=== PATIENT | female | born 1970 | race Caucasian/White ===

== ENCOUNTER → 2018-12-28 | Outpatient (CLI) | payer OTHER ==
--- NOTE | 2018-12-28 13:54 | REP ---
BILATERAL MAMMOGRAM WITH 3D TOMOSYNTHESIS: No family history of breast cancer. [facility] lifetime risk of breast cancer 9.2%. Bilateral mammography performed in the MLO and CC projections with 3D tomosynthesis. Comparison made with prior studies 04/03/2015 and 01/01/2014. There is mild scattered fibroglandular tissue bilaterally. There is a new oval irregular mass in the upper outer quadrant of the left breast measuring 1.9 cm in maximum diameter. There is also an adjacent more well circumscribed and smoothly marginated nodule slightly above and lateral and posterior, measuring 7 mm in maximum diameter. No other mass or clustered microcalcifications are seen bilaterally. There are coarse benign type calcifications present. There are nonenlarged axillary lymph nodes seen. IMPRESSION: BIRADS 0: BI-RADS/ACR category 0 mammogram, Incomplete: Need additional imaging evaluation and/or prior mammograms for comparison. Two new nodules in the upper outer quadrant of the left breast, with a larger irregular nodule 1.9 cm in diameter and an adjacent well circumscribed nodule 7 mm in diameter. Recommend spot compression views and ultrasound to further evaluate. This mammogram was interpreted with the aid of an FDA-approved computer-aided detection system. The patient states she has not had a clinical breast exam in over a year. The patient letter being requested is M0.
== END ==
LOC: M WHC 09:57
PROVIDERS: ATTEND Physician Assistant
DX: Z12.31 Encounter for screening mammogram for malignant neoplasm of breast (principal); N63.21 Unspecified lump in the left breast, upper outer quadrant

== ENCOUNTER → 2019-01-09 | Outpatient (CLI) | payer OTHER ==
--- NOTE | 2019-01-09 13:52 | REP ---
DIAGNOSTIC MAMMOGRAM LEFT BREAST WITH LEFT BREAST ULTRASOUND: Spot compression views of the left breast performed in multiple projections. These confirm the presence of an irregular oval nodule in the upper outer quadrant of the left breast. Approximate diameter is 1.9 cm. An adjacent nodule posterolateral to this appears fairly well circumscribed measuring 7 mm in diameter. Real-time sonographic evaluation of the upper outer quadrant of the left breast performed. Suspicious irregular solid mass is seen at 2-o'clock position 1.8 x 1.6 x 1.3 cm. There is an adjacent 6 mm cyst. These two entities correspond to the mammographic abnormality. IMPRESSION: BIRADS 4: BI-RADS/ACR category 4 mammogram. Suspicious Abnormality - biopsy should be considered. ACR 4 suspicious. Irregular solid nodule, upper outer quadrant left breast. This is seen both mammographically and sonographically. Recommend ultrasound-guided biopsy with postprocedure mammogram. In addition, there is an adjacent 6 mm benign appearing cyst just posterolateral to the solid nodule. Patient letter M4. Electronically Signed by Khai Sunshine MD 01/10/2019 03:05 P
== END ==
LOC: M RAD 10:26
PROVIDERS: ATTEND Physician Assistant
DX: N63.11 Unspecified lump in the right breast, upper outer quadrant (principal)

== ENCOUNTER → 2019-01-31 | Outpatient (CLI) | payer OTHER ==
[~2019-01-31] MED LIST: LIDOCAINE 1% MDV 20ML VIAL As Ordered ONE
--- NOTE | 2019-01-31 14:51 | REP ---
POST BIOPSY MAMMOGRAM LEFT BREAST: Post biopsy mammogram performed of the left breast following ultrasound-guided biopsy of a mass in the upper outer quadrant. A metallic clips is seen in the region of the mass that was seen on prior mammogram 12/28/2018 and 01/09/2019. Electronically Signed by Khai Sunshine MD 01/31/2019 04:19 P
--- NOTE | 2019-01-31 16:22 | REP ---
ULTRASOUND GUIDED LEFT BREAST BIOPSY The procedure was performed under the direct supervision of Dr. Sunshine The patient has a history of an irregular solid mass in the 2 o'clock position of the left breast measuring 1.8 x 1.6 x 1.3 cm. The risks and benefits of the procedure were explained to the patient and informed consent was obtained. The left breast nodule was localized using ultrasound guidance. The skin was prepped and draped in a sterile fashion. 1% Xylocaine was used as a local anesthetic. Using ultrasound guidance a 13-gauge suction assisted Mammotome needle was inserted and six core biopsy samples were obtained. However, there were technical issues with the suction assisted Mammotome needle and there were no specimens and the basket. Another 13-gauge suction assisted Mammotome needle was inserted and six more core biopsy samples were obtained. A marker clip was placed at the biopsy site. The patient tolerated the procedure well and there were no immediate complications. After the appropriate amount of monitored convalescence the patient was discharged from the department. Reviewed by EMELIA Saenz 01/31/2019 04:12 P Electronically Signed by Khai Sunshine MD 01/31/2019 04:13 P
== END ==
LOC: M RADPRO 12:27
PROVIDERS: ATTEND Physician Assistant
DX: C50.412 Malignant neoplasm of upper-outer quadrant of left female breast (principal); Z88.0 Allergy status to penicillin; Z88.1 Allergy status to other antibiotic agents; Z88.8 Allergy status to other drugs, medicaments and biological substances

== ENCOUNTER → 2019-02-10 | Outpatient (REF) | payer OTHER ==
[2019-02-10 16:04] LABS: BASO # 0.1 10^3/uL (0.0-0.2); BASO % 0.8 % (0.0-1.0); EOS # 0.1 10^3/uL (0.0-0.50); EOS % 1.1 % (0.0-3.0); HEMATOCRIT 44.6 % (36.0-47.0); HEMOGLOBIN 14.8 g/dl (12.0-15.5); LYMPH # 2.3 10^3/uL (1.5-4.5); LYMPH % 21.6 % (24.0-44.0); MEAN CORPUSCULAR HEMOGLOBIN 31.4 pg (27.0-33.0); MEAN CORPUSCULAR HGB CONC 33.2 g/dl (32.0-36.5); MEAN CORPUSCULAR VOLUME 94.5 fl (80.0-96.0); MONO # 0.5 10^3/uL (0.0-0.8); MONO % 4.9 % (0.0-5.0); NEUTROPHILS # 7.5 10^3/uL (1.8-7.7); NEUTROPHILS % 71.4 % (36.0-66.0); PLATELET COUNT, AUTOMATED 327 10^3/uL (150-450); RED BLOOD COUNT 4.72 10^6/uL (4.00-5.40); WHITE BLOOD COUNT 10.5 10^3/uL (4.0-10.0)
[2019-02-10 16:18] LABS: INR 0.92; PROTHROMBIN TIME 12.5 SECONDS (12.1-14.4)
[2019-02-10 16:19] LABS: PARTIAL THROMBOPLASTIN TIME 31.5 SECONDS (25.4-37.6)
[2019-02-10 16:21] LABS: ALT/SGPT 43 U/L (12-78); BLOOD UREA NITROGEN 9 MG/DL (7-18); CALCIUM LEVEL 8.7 MG/DL (8.5-10.1); CARBON DIOXIDE LEVEL 26 MEQ/L (21-32); CHLORIDE LEVEL 108 MEQ/L (98-107); CREATININE FOR GFR 0.87 MG/DL (0.55-1.30); FREE T4 1.02 NG/DL (0.76-1.46); GLOMERULAR FILTRATION RATE > 60.0 (>58); GLUCOSE, FASTING 93 MG/DL (70-100); POTASSIUM SERUM 4.3 MEQ/L (3.5-5.1); SODIUM LEVEL 141 MEQ/L (136-145); TOTAL PROTEIN 7.9 GM/DL (6.4-8.2)
== END ==
LOC: M SFHCPLAZ 13:22
PROVIDERS: ATTEND Family Medicine
DX: C50.919 Malignant neoplasm of unspecified site of unspecified female breast (principal)

== ENCOUNTER 2019-03-30 21:42 | Emergency (ER) | payer OTHER ==
[~2019-03-30] VITALS: Ht 157.5 cm; Wt 84.1 kg
[~2019-03-30 21:42] MED LIST changes: +CITA20TA7 PO; +CVS10CAP7 PO; +DEXA4TA PO; +HYDR-3713 PO; +LIDO2.5C15 TOP; -LIDOCAINE 1% MDV 20ML VIAL As Ordered ONE; +MULTTAB4 PO; +ONDA4TAB5 PO; +SM HTAB3 PO; +VICO5TAB17 PO; +ZYRTTAB8 PO
--- NOTE | 2019-03-30 23:37 | REPVR ---
EXAM: US Duplex Bilateral Lower Extremity Veins EXAM DATE/TIME: 03/30/2019 11:22 PM CLINICAL HISTORY: 48 years old, female; Pain; Leg, upper; Left; Additional info: Swelling TECHNIQUE: Imaging protocol: Real-time duplex ultrasound of the Bilateral Lower Extremities with 2-D jackson scale, color Doppler flow and spectral waveform analysis with image documentation. Complete exam focused on the bilateral lower extremity veins. COMPARISON: No relevant prior studies available. FINDINGS: Right deep veins: Unremarkable. The common femoral, femoral, proximal profunda femoral and popliteal veins are patent without thrombus. Normal Doppler waveforms. Normal compressibility and/or augmentation response. Right superficial veins: Saphenofemoral junction is patent without thrombus. Left deep veins: Unremarkable. The common femoral, femoral, proximal profunda femoral and popliteal veins are patent without thrombus. Normal Doppler waveforms. Normal compressibility and/or augmentation response. Left superficial veins: Saphenofemoral junction is patent without thrombus. Soft tissues: Unremarkable. IMPRESSION: No sonographic evidence of deep vein thrombosis. Electronically signed by: John Orellana On 03/30/2019 23:36:48 PM
[2019-03-31 00:37] VITALS: BP 108/68
[2019-04-12] MEDS ORDERED: CLAR10TA2 PO (08:51)
[2019-04-12] MEDS ORDERED: ZANT150T40 PO (08:51)
== END 2019-03-31 00:39 | disposition home or self-care (01) ==
LOC: M ED 21:42
DX: M70.862 Other soft tissue disorders related to use, overuse and pressure, left lower leg (principal); C50.012 Malignant neoplasm of nipple and areola, left female breast; G47.00 Insomnia, unspecified; Z88.0 Allergy status to penicillin; Z88.2 Allergy status to sulfonamides; Z79.899 Other long term (current) drug therapy

== ENCOUNTER → 2019-06-23 | Outpatient (CLI) | payer OTHER ==
[~2019-06-23] MED LIST changes: +ALL10TAB29 PO; +AMBI5TAB PO; +CLAR10TA2 PO; +TAMO20TA8 PO; +ZANT150T40 PO
--- NOTE | 2019-06-24 11:20 | RADONC ---
RADIATION ONCOLOGY CONSULTATION NOTE DATE: 06/23/2019 CHART NUMBER: [id number] DIAGNOSIS: Left breast cancer. STAGE: Stage I A, [id number], grade 3, HER2 negative, ER negative, AL positive. ECOG PERFORMANCE STATUS: 0. CONSULTATION NOTE: Ms. 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 HISTORY OF PRESENT ILLNESS: The patient was in the usual state of health until routine mammogram was done on 12/28/2018, in which she was found to have nodules in the upper outer quadrant of the left breast. One nodule measured 1.9 cm in diameter and an adjacent well-circumscribed nodule measured 7 mm in diameter. The patient underwent a left breast core biopsy and a poorly differentiated ductal carcinoma was found. The tumor was found to be estrogen receptor negative, progesterone receptor negative and HER2/esau negative. On 02/25/2019, the patient underwent lumpectomy and sentinel lymph node biopsy. Pathology revealed a 1.8 cm poorly differentiated infiltrating ductal carcinoma. Re-excision of the margins was undertaken and all margins were negative for malignancy. A total of two axillary lymph nodes were sampled and were negative for metastatic disease. Hormonal status was reevaluated and the patient was found to have estrogen receptor negative disease, HER2/esau negative disease and progesterone receptor positive disease with 10% positivity. The patient was seen by medical oncology in our institution and has subsequently undergone systemic therapy with Taxotere and cyclophosphamide. Her last systemic therapy was delivered on May 24, 2019. The patient did well with it and is now presenting for discussion of postoperative radiation therapy for conservative breast management. ALLERGIES: The patient is allergic to PENICILLIN and SULFA drugs. PAST MEDICAL HISTORY: The patient's past medical history is positive for anxiety and psychiatric issues but is otherwise noncontributory. She has been in generally good health. She has had a history of a tonsillectomy, tubal ligation and hysterectomy in the past. SOCIAL HISTORY: The patient does not smoke cigarettes. She drinks alcohol occasionally. FAMILY HISTORY: The patient's family history is positive for a father who of some type of cancer. REVIEW OF SYSTEMS: The patient's review of systems is positive for fatigue and some joint pain, as well as difficulty sleeping since chemotherapy. She is also positive for some anxiety and decreased energy. She denies nausea, vomiting, fevers, chills, night sweats, diplopia, headaches, depression, urinary or bowel difficulties, bone pain or neurological problems. PHYSICAL EXAMINATION: The patient is a well-developed, well-nourished female in no acute distress. HEENT exam is normocephalic, atraumatic. Extraocular movements are intact. There is no palpable cervical, supraclavicular, infraclavicular, axillary, or inguinal lymphadenopathy present. Lungs are clear to auscultation and percussion. Heart has a regular rate and rhythm. Abdomen is benign with no hepatosplenomegaly, masses, or tenderness. Breast examination reveals no masses or discharge bilaterally. Skeletal examination reveals no tenderness to pressure or percussion of the bony skeleton. Extremities reveal no clubbing, cyanosis, or edema. Neurologic exam is grossly intact, as is the remainder of the physical examination. ASSESSMENT Clearly, the patient is a candidate for external beam radiation therapy and I have so informed her. I have discussed with the patient in detail the potential benefits, as well as possible acute and chronic sequelae of external beam radiation therapy. We discussed logistics of treatment planning, simulation and subsequent fractionated daily radiation treatments. I have scheduled the patient for the next available simulation slot and radiation treatments will begin subsequently. Thank you for allowing us to participate in the care of this very pleasant woman. If I can be of any further assistance, please free to contact me anytime. As always, warm regards, Khai Trevizo MD cc: MD Chloé Brennan MD Ryan Tyler, MD
== END ==
LOC: M ONCR 08:55
PROVIDERS: ATTEND Radiology Radiation Oncology
DX: C50.912 Malignant neoplasm of unspecified site of left female breast (principal)

== ENCOUNTER → 2019-07-06 | Outpatient (RCR) | payer OTHER ==
--- NOTE | 2019-06-27 10:52 | LET ---
June 26, 2019 To Whom It May Concern: This is a very pleasant 48-year-old female who is currently on to my care for treatment of carcinoma of the breast. The patient is just completing her chemotherapy and is due to have supportive medications, as well as a 5 to 7-week course of radiation therapy. I have advised the patient that she needs to stay out of work until at least September 2019 in order for her to receive the second part of her treatment, as well as to avoid periods of immunosuppression from being in crowds. Thank you. Sincerely, Chloé Ramos MD
--- NOTE | 2019-06-27 12:00 | RADONC ---
RADIATION ONCOLOGY SIMULATION NOTE DATE: 06/27/2019 CHART #:[id number] SIMULATION NOTE Mrs. Michael with a diagnosis of left breast cancer was placed on the table in a supine position. An immobilization device was fabricated to ensure daily stability during her actual treatment. The patient tolerated the fabrication and placement of the immobilization device quite well with no significant untoward events. Thereafter, 3 mm images were obtained through our CT simulator for contouring of internal and external structures as well as in order to develop an appropriate treatment plan. I was present during the entire process of simulation. The entire simulation went well with no significant untoward side effects or events. MTDD
== END ==
LOC: M ONCR 06-27 10:15
PROVIDERS: ATTEND Radiology Radiation Oncology
DX: C50.412 Malignant neoplasm of upper-outer quadrant of left female breast (principal)

== ENCOUNTER 2019-08-02 14:32 | Outpatient (RCR) | payer OTHER ==
--- NOTE | 2019-07-10 15:46 | RADONC ---
RADIATION ONCOLOGY PROGRESS NOTE DATE: 07/10/2019 CHART NUMBER: [id number] PROGRESS NOTE: Mrs. Michael with a diagnosis of malignant neoplasm involving the upper outer quadrant of the left breast is currently receiving local regional radiotherapy and tolerating it fairly well. REVIEW OF SYSTEMS: She denies any nausea, vomiting, coughing, sputum production or hemoptysis. She still feels very fatigued which is left over from the chemotherapy but she has had no increasing fatigue with the addition of her adjuvant radiotherapy. Her energy level is such that she is able to maintain many day-to-day activities without any alteration of her lifestyle. She reports no skin irritation. She is only into her third treatment as of today. Examination findings: The skin within the irradiated volume shows neither erythema nor desquamation. There is no palpable peripheral lymphadenopathy. Lungs are clear to auscultation and percussion. Heart regular without murmurs. Abdomen without evidence of hepatomegaly, masses or deep abdominal tenderness. Extremities negative. The remainder of the physical examination is noncontributory. IMPRESSION: Tolerating therapy well. PLAN: Treatments to continue.
--- NOTE | 2019-07-17 16:19 | RADONC ---
RADIATION ONCOLOGY PROGRESS NOTE DATE: 07/17/2019 CHART NUMBER: [id number] PROGRESS NOTE: Ms. Michael is presently at a dose of 1440 cGy to her left breast and is tolerating treatments quite well at this point with no complaints related to her radiation therapy. She is having no breast or bone pain. REVIEW OF SYSTEMS: The patient's review of systems is noncontributory. Denies nausea, vomiting, fevers, chills, night sweats, diplopia, headaches, anxiety or depression, anorexia, weight loss, visual disturbances, chest pain, urinary or bowel difficulties, bone pain, or neurological problems. PHYSICAL EXAMINATION: The patient's skin is in good condition with no evidence of moist or dry desquamation. The remainder of her physical exam remains unchanged. Ms. Michael is tolerating treatments quite well and radiation will continue as scheduled.
--- NOTE | 2019-07-25 11:23 | RADONC ---
RADIATION ONCOLOGY PROGRESS NOTE DATE OF SERVICE: 07/24/2019 CHART NUMBER: [id number] Ms. Michael is presently at a dose of 2340 cGy to her left breast and is tolerating treatments quite well at this point with no significant difficulties related to her radiation therapy. She does report that she has generalized discomfort in all her bones and joints which appears to have coincided with the initiation of radiation treatments. She also has significant hot flashes, which have been going on a while as well. Other than that the patient's review of systems is noncontributory. Denies nausea, vomiting, fevers, chills, night sweats, diplopia, headaches, anxiety or depression, anorexia, weight loss, visual disturbances, chest pain, urinary or bowel difficulties, bone pain, or neurological problems. PHYSICAL EXAMINATION: The patient's skin is in good condition with no evidence of moist or dry desquamation. The remainder of her physical exam remains unchanged. Ms. Michael is tolerating treatments quite well and radiation will continue as scheduled.
--- NOTE | 2019-08-02 09:04 | RADONC ---
RADIATION ONCOLOGY PROGRESS NOTE DATE OF SERVICE: 07/31/2019 CHART NUMBER: [id number] Ms. Michael is presently at a dose of 3240 cGy to her left breast and is tolerating treatments quite well at this point with no significant difficulties related to her radiation therapy other than some skin tenderness. The patient's review of systems is positive for some skin tenderness but is otherwise noncontributory. Denies nausea, vomiting, fevers, chills, night sweats, diplopia, headaches, anxiety or depression, anorexia, weight loss, visual disturbances, chest pain, urinary or bowel difficulties, bone pain, or neurological problems. PHYSICAL EXAMINATION: The patient's skin is in good condition with some erythema present but no evidence of moist or dry desquamation. The remainder of the physical exam remains unchanged. Ms. Michael is tolerating treatments quite well and radiation will continue as scheduled.
--- NOTE | 2019-08-03 09:57 | RADONC ---
RADIATION ONCOLOGY SIMULATION NOTE DATE: 08/01/2019 CHART NUMBER: [id number] SIMULATION NOTE: Ms. Michael was taken to the linear accelerator today for clinical setup of her electron beam left breast boost. Setup was accomplished without difficulty or discomfort. Radiation treatment planning is underway and radiation treatments will begin subsequently. An immobilization device was created and will be used throughout the course of treatment. It was created without difficulty or discomfort. I was physically present throughout the course of clinical setup simulation.
== END 2019-08-05 ==
LOC: M ONCR 14:32
PROVIDERS: ATTEND Radiology Radiation Oncology
DX: C50.412 Malignant neoplasm of upper-outer quadrant of left female breast (principal)

== ENCOUNTER → 2019-08-15 | Outpatient (CLI) | payer OTHER ==
[2019-08-15 13:38] LABS: BASO % 0.9 % (0.0-1.0); EOS # 0.1 10^3/uL (0.0-0.5); EOS % 2.2 % (0.0-3.0); HEMATOCRIT 41.8 % (36.0-47.0); HEMOGLOBIN 13.5 g/dl (12.0-15.5); LYMPH # 1.1 10^3/uL (1.5-5.0); LYMPH % 24.6 % (24.0-44.0); MEAN CORPUSCULAR HEMOGLOBIN 29.9 pg (27.0-33.0); MEAN CORPUSCULAR HGB CONC 32.3 g/dl (32.0-36.5); MEAN CORPUSCULAR VOLUME 92.7 fl (80.0-96.0); MONO # 0.4 10^3/uL (0.0-0.8); MONO % 7.9 % (0.0-5.0); NEUTROPHILS # 2.9 10^3/uL (1.5-8.5); NEUTROPHILS % 64.2 % (36.0-66.0); PLATELET COUNT, AUTOMATED 240 10^3/uL (150-450); RED BLOOD COUNT 4.51 10^6/uL (4.00-5.40); WHITE BLOOD COUNT 4.6 10^3/uL (4.0-10.0)
[2019-08-15 13:54] LABS: ALBUMIN 3.8 GM/DL (3.2-5.2); ALT/SGPT 78 U/L (12-78); BILIRUBIN,TOTAL 0.5 MG/DL (0.2-1.0); BLOOD UREA NITROGEN 13 MG/DL (7-18); CARBON DIOXIDE LEVEL 26 MEQ/L (21-32); CHLORIDE LEVEL 107 MEQ/L (98-107); CHOLESTEROL LEVEL 180 MG/DL (<200); CHOLESTEROL RISK RATIO 2.142 (<5); CREATININE FOR GFR 0.78 MG/DL (0.55-1.30); FREE T4 0.89 NG/DL (0.76-1.46); GLOMERULAR FILTRATION RATE > 60.0 (>58); GLUCOSE, FASTING 109 MG/DL (70-100); HDL CHOLESTEROL 84 MG/DL (>40); LDL CHOLESTEROL 81 MG/DL (<100); NON-HDL-C 96 MG/DL; POTASSIUM SERUM 4.1 MEQ/L (3.5-5.1); PTH INTACT 60.1 PG/ML (18.5-88.0); SODIUM LEVEL 139 MEQ/L (136-145); TOTAL PROTEIN 6.9 GM/DL (6.4-8.2); TRIGLYCERIDES LEVEL 76 MG/DL (<150)
[2019-08-15 14:01] LABS: HEMOGLOBIN A1c 5.5 %
--- NOTE | 2019-08-15 15:06 | REPPI ---
Single AP standing view of both knees: History: Osteoarthritis. Comparison left knee radiographs are from August 15, 2019. Findings: Upright AP view of both knees demonstrate mild sclerosis in the medial compartment bilaterally. No significant joint space narrowing is seen however. Electronically Signed by Get Espinal MD 08/15/2019 05:19 P
--- NOTE | 2019-08-15 15:17 | REPPI ---
Left knee series: Five views. History: Osteoarthritis. Findings: There is mild sclerosis in the medial compartment. Mild patellar spurring is appreciated laterally and inferiorly. There is nonarticular spurring at the superior pole of the patella at the quadriceps tendon insertion as well. A normal fabella is seen. Bones, joints and soft tissues are otherwise unremarkable. Impression: Mild medial and patellofemoral compartment osteoarthritis. Nonarticular spurring at the superior pole of the patella quadriceps tendon insertion site is also seen. Electronically Signed by Get Espinal MD 08/15/2019 05:19 P
== END ==
LOC: M PLAIMG 10:32
PROVIDERS: ATTEND Family Medicine
DX: M17.0 Bilateral primary osteoarthritis of knee (principal); E66.3 Overweight

== ENCOUNTER 2019-08-23 14:01 | Outpatient (RCR) | payer OTHER ==
--- NOTE | 2019-08-08 16:02 | RADONC ---
RADIATION ONCOLOGY TREATMENT NOTE DATE OF SERVICE: 08/08/2019 CHART NUMBER: Mr. Michael is a 48-year-old woman, who carries a diagnosis of left breast cancer. She is status post chemotherapy. So far, she has received dose of 3960 cGy in 22 fractions. She is complaining of peripheral neuropathy. There is moderate to marked skin erythema in whole breast, more significantly inframammary area and left axilla. She is using corn starch in the inframammary area and axilla; also using Aquaphor. Further skin care discussed and treatment will continue. MTDD
--- NOTE | 2019-08-14 15:34 | RADONC ---
RADIATION ONCOLOGY PROGRESS NOTE DATE: 08/14/2019 CHART NUMBER: [id number] PROGRESS NOTE: Ms. Michael is presently at a dose of 4680 cGy to her left breast and is tolerating treatments quite well at this point with no significant difficulties related to her radiation therapy other than some skin tenderness. REVIEW OF SYSTEMS: The patient's review of systems is positive for some skin tenderness but is otherwise noncontributory. Denies nausea, vomiting, fevers, chills, night sweats, diplopia, headaches, anxiety or depression, anorexia, weight loss, visual disturbances, chest pain, urinary or bowel difficulties, bone pain, or neurological problems. PHYSICAL EXAMINATION: The patient's skin is in good condition with no evidence of moist or dry desquamation. The remainder of physical exam remains unchanged. Ms. Mihcael is tolerating treatments quite well and radiation will continue as scheduled.
--- NOTE | 2019-08-23 08:16 | RADONC ---
RADIATION ONCOLOGY PROGRESS NOTE DATE: 08/21/2019 CHART #: [id number] Ms. Michael is presently at a dose of 5680 cGy to her left breast primary site and is tolerating treatments quite well at this point with no complaints related to her radiation therapy. She is having no breast or bone pain. REVIEW OF SYSTEMS: The patient's review of systems is noncontributory. Denies nausea, vomiting, fevers, chills, night sweats, diplopia, headaches, anxiety or depression, anorexia, weight loss, visual disturbances, chest pain, urinary or bowel difficulties, bone pain, or neurological problems. PHYSICAL EXAMINATION: The patient's skin is in good condition with some erythema and tanning present. There is no moist or dry desquamation. The remainder of her physical exam remains unchanged. Ms. Michael is tolerating treatments quite well and radiation will continue as scheduled.
[~2019-08-23 14:01] MED LIST changes: +ONDA-83 PO; -ONDA4TAB5 PO
--- NOTE | 2019-08-25 16:32 | RADONC ---
RADIATION ONCOLOGY TREATMENT SUMMARY DATE: 08/23/2019 CHART NUMBER: [id number] DIAGNOSIS: Left breast cancer. STAGE: I A, pT1c, pN0, M0, grade 3, HER2/esau negative, ER negative, AZ positive. ECOG PERFORMANCE STATUS: 0 CONSULTATION NOTE: Ms. 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 We treated the left breast for a total dose of 4860 cGy delivered in 27 fractions of 180 cGy each over 40 elapsed days from 07/06/2019 through 08/15/2019. The patient's left breast was treated on a linear accelerator utilizing a combination of 6 and 10X photons via 3-D conformal technique with medial and lateral tangential hurtado. Following completion of 4860 cGy of the entire left breast, the primary site was boosted for an additional 1200 cGy delivered in 6 fractions of 200 cGy each over seven elapsed days from 08/16/2019 through 08/23/2019. The primary site boost was treated on the linear accelerator utilizing a 16 MeV electron beam prescribed to the 90% isodose line via non phos technique. This brought the primary site to a total dose of 6060 cGy delivered in 33 fractions over 47 elapsed days from 07/06/2019 through 08/23/2019. Ms. Michael tolerated her treatments quite well and was able to complete therapy as prescribed. I have scheduled the patient to see me again in 1 month for further followup. She will also continue to be followed by her other physicians as well. cc: Tanisha Richmond, MD Corin Payne MD
[2019-09-20] MEDS ORDERED: MELO15TA28 PO (08:42)
[2019-09-20] MEDS ORDERED: ASPI81CH33 PO (08:42)
[2019-09-20] MEDS ORDERED: GABA-843 PO (10:43)
== END 2019-09-05 ==
LOC: M ONCR 14:01
PROVIDERS: ATTEND Radiology Radiation Oncology
DX: C50.412 Malignant neoplasm of upper-outer quadrant of left female breast (principal)

== ENCOUNTER → 2019-09-27 | Outpatient (CLI) | payer OTHER ==
[~2019-09-27] MED LIST changes: +ASPI81CH33 PO; +GABA-843 PO; +MELO15TA28 PO
--- NOTE | 2019-09-28 08:15 | RADONC ---
RADIATION ONCOLOGY FOLLOWUP NOTE DATE: 09/27/2019 CHART NUMBER: [id number] DIAGNOSIS: Left breast cancer. STAGE: IA, pT1c, pN0, M0, grade 3, HER2 negative, ER negative, IN negative. ECOG PERFORMANCE STATUS: 0. FOLLOWUP NOTE: Ms. 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 The patient presents today reporting that generally she is doing quite well with no complaints at this time related to her radiation therapy or disease. She is having no breast or bone pain. The patient is concerned. She went to her medical oncologist, Dr. Kim, the other day who noted a lump in the surgical field of her treated breast and told her to immediately go to her surgeon, Dr. Corin Castanon MD. She is here today for routine followup and to obtain my opinion. She is scheduled see Dr. Corin Castanon later this afternoon [place]. The patient's review of systems is noncontributory. She denies nausea, vomiting, fevers, chills, night sweats, diplopia, headaches, anxiety or depression, anorexia, weight loss, visual disturbances, chest pain, urinary or bowel difficulties, bone pain, or neurological problems. PHYSICAL EXAMINATION: The patient is a well-developed, well-nourished, female in no acute distress. HEENT exam is normocephalic, atraumatic. Extraocular movements are intact. There is no palpable cervical, supraclavicular, infraclavicular, axillary, or inguinal lymphadenopathy present. Lungs are clear to auscultation and percussion. Heart has a regular rate and rhythm. Abdomen is benign with no hepatosplenomegaly, masses, or tenderness. Breast examination reveals the patient's right breast is free of masses or discharge. Her left breast shows some radiation tanning present, but is generally free of masses or discharge. Underneath the primary site surgical scar there is a hard little nodular density consistent with scar tissue. It is underlying the surgical scar, but also the deeply tanned region of the electron beam boost field. No other masses are noted. Skeletal examination reveals no tenderness to pressure or percussion of the bony skeleton. Extremities reveal no clubbing, cyanosis, or edema. Neurologic exam is grossly intact, as is the remainder of the physical examination. ASSESSMENT: I believe the patient is clinically ANGEL at this time although I look forward to Dr. Castanon's expert opinion with regards to this nodular area. I believe this is scar tissue. Not only it directly under the surgical scar which Dr. Castanon can address in greater detail but it is within our boost field of radiation. Logically it would seem hard to imagine that this area went from no disease to a hard mass growing right through the equivalent of 6060 cGy. Indeed the prescribed dose for the boost field was at the 90% isodose line and this area probably got somewhat hotter, I would estimate perhaps at 6200 cGy. Although that does not rule out the possibility that this could happen I find it very unlikely that this is anything to be concerned about. The patient is scheduled to see Dr. Corin Castanon every few months and in light of my impending prison I have discharged her from my followup except on an as needed basis. She does have my cell phone number as well as office number and I am available to her for anything whatsoever. She will also continue to be followed by her other physicians. cc: MD Neo Brennan MD Ryan Tyler, MD
== END ==
LOC: M ONCR 09:23
PROVIDERS: ATTEND Radiology Radiation Oncology
DX: Z08 Encounter for follow-up examination after completed treatment for malignant neoplasm (principal); C50.412 Malignant neoplasm of upper-outer quadrant of left female breast; Z92.3 Personal history of irradiation

== ENCOUNTER → 2019-10-04 | Outpatient (CLI) | payer OTHER ==
--- NOTE | 2019-10-10 14:22 | DEXA ---
AP SPINE L1 - L4 1.180 -0.1 0.2 LT FEMUR TOTAL 0.865 -1.1 -0.7 LT NECK 0.853 -1.3 -0.6 RT FEMUR TOTAL 1.022 0.1 0.5 RT NECK 0.973 -0.5 0.3 TOTAL BODY TOTAL OTHER COMMENTS: Normal bone densitometry of the spine. Normal bone densitometry of the right hip. There is low bone density of the left hip. FOLLOW-UP: Recommendation for the next bone density exam: 2 years. KEREN
== END ==
LOC: M WHC 09:17
PROVIDERS: ATTEND Internal Medicine Hematology & Oncology
DX: Z78.0 Asymptomatic menopausal state (principal); C50.412 Malignant neoplasm of upper-outer quadrant of left female breast

== ENCOUNTER → 2021-01-17 | Outpatient (REF) | payer OTHER ==
[~2021-01-17] MED LIST changes: -ALL10TAB29 PO; +CETI-24 PO; +GABA-282 PO; -GABA-843 PO; +LIDO1CRE42 TOP; -LIDO2.5C15 TOP; +MULT1TAB74 PO; -MULTTAB4 PO
[2021-01-17 14:08] LABS: HEMOGLOBIN A1c 5.4 %
[2021-01-17 14:35] LABS: ALBUMIN 3.8 GM/DL (3.2-5.2); ALT/SGPT 41 U/L (12-78); BILIRUBIN,TOTAL 0.6 MG/DL (0.2-1.0); BLOOD UREA NITROGEN 12 MG/DL (7-18); CALCIUM LEVEL 9.2 MG/DL (8.5-10.1); CARBON DIOXIDE LEVEL 28 MEQ/L (21-32); CHLORIDE LEVEL 108 MEQ/L (98-107); CREATININE FOR GFR 0.56 MG/DL (0.55-1.30); FREE T4 0.93 NG/DL (0.76-1.46); GLOMERULAR FILTRATION RATE > 60.0 (>51); GLUCOSE, FASTING 89 MG/DL (70-100); NT-PRO BNP 24 PG/ML (<125); POTASSIUM SERUM 4.7 MEQ/L (3.5-5.1); PTH INTACT 68.9 PG/ML (18.5-88.0); SODIUM LEVEL 141 MEQ/L (136-145); THYROGLOBULIN ANTIBODY < 15.0 U/ML (<60.0); THYROID PEROXIDASE ANTIBODY 29.2 U/ML (<60.0); TOTAL 25(OH) VITAMIN D 20.2 NG/ML (30.0-100.0); TOTAL PROTEIN 7.2 GM/DL (6.4-8.2)
== END ==
LOC: M SFHCPLAZ 08:54 → M SFHCADAM 08:55
PROVIDERS: ATTEND Family Medicine
DX: R73.01 Impaired fasting glucose (principal); E55.9 Vitamin D deficiency, unspecified; R60.0 Localized edema

== ENCOUNTER → 2021-01-27 | Outpatient (CLI) | payer OTHER | LOC: M WHC 12:46 | PROVIDERS: ATTEND Family Medicine | DX: E28.39 Other primary ovarian failure (principal) ==

== ENCOUNTER → 2021-04-28 | Outpatient (CLI) | payer OTHER ==
[~2021-04-28] MED LIST changes: +FLUTISP; +OMEP-218; +PARO5TAB; +VENL150C43; +VITA200016
== END ==
LOC: M LABSMTC 10:24
PROVIDERS: ATTEND Anesthesiology
DX: Z11.52 Encounter for screening for COVID-19 (principal)

== ENCOUNTER 2021-05-02 09:46 | Day surgery (SDC) | payer OTHER ==
[~2021-05-02] VITALS: Ht 157.5 cm; Wt 90.7 kg
[~2021-05-02 09:46] MED LIST changes: +LIDOCAINE 2% 100MG/5ML SDV (FOR ANES.) As Ordered ONE; +NS 1,000 ML IV ONE; +propofoL 200 MG/20 ML VIAL As Ordered ONE
--- NOTE | 2021-05-02 11:40 | ROOR ---
Patient Name: Rachael Michael Procedure Date: 05/02/2021 11:11 AM Date of : 1970 Age: 50 Room: [facility] Gender: Female Note Status: Finalized Procedure: Colonoscopy Indications: Screening for colorectal malignant neoplasm Providers: Navneet Wade MD Referring MD: Perez Costello MD Requesting Provider: Medicines: Monitored Anesthesia Care Complications: No immediate complications. Procedure: Pre-Anesthesia Assessment: - The heart rate, respiratory rate, oxygen saturations, blood pressure, adequacy of pulmonary ventilation, and response to care were monitored throughout the procedure. The Colonoscope was introduced through the anus and advanced to the terminal ileum, with identification of the appendiceal orifice and IC valve. The colonoscopy was performed without difficulty. The patient tolerated the procedure well. The quality of the bowel preparation was good. Findings: The perianal and digital rectal examinations were normal. A diminutive polyp was found in the sigmoid colon. The polyp was sessile. The polyp was removed with a cold snare. Resection and retrieval were complete. Small Internal Hemorrhoids. The exam was otherwise without abnormality on direct and retroflexion views. Impression: - One diminutive polyp in the sigmoid colon, removed with a cold snare. Resected and retrieved. - Small Internal Hemorrhoids. - The examination was otherwise normal on direct and retroflexion views. Recommendation: - Repeat colonoscopy in 5 years for surveillance. Procedure Code(s): --- Professional --- 01068, Colonoscopy, flexible; with removal of tumor(s), polyp(s), or other lesion(s) by snare technique Diagnosis Code(s): --- Professional --- K63.5, Polyp of colon Z12.11, Encounter for screening for malignant neoplasm of colon CPT copyright 2019 [employer]. All rights reserved. The codes documented in this report are preliminary and upon team truck driver review may be revised to meet current compliance requirements. Navneet Wade MD Navneet Wade MD 05/02/2021 11:40:02 AM Electronically signed by Navneet Wade MD Number of Addenda: 0 Note Initiated On: 05/02/2021 11:11 AM Estimated Blood Loss: Estimated blood loss: none.
[2021-05-02 12:00] VITALS: BP 131/74
== END 2021-05-02 12:11 | disposition home or self-care (01) ==
LOC: M OPP 09:46
PROVIDERS: ATTEND Internal Medicine Gastroenterology
DX: Z12.11 Encounter for screening for malignant neoplasm of colon (principal); K63.5 Polyp of colon; K64.8 Other hemorrhoids; K21.9 Gastro-esophageal reflux disease without esophagitis; Z79.899 Other long term (current) drug therapy; Z88.0 Allergy status to penicillin; Z88.8 Allergy status to other drugs, medicaments and biological substances

== ENCOUNTER → 2022-01-09 | Outpatient (CLI) | payer OTHER ==
[~2022-01-09] MED LIST changes: -LIDOCAINE 2% 100MG/5ML SDV (FOR ANES.) As Ordered ONE; -NS 1,000 ML IV ONE; +OMEP-173; -OMEP-218; -propofoL 200 MG/20 ML VIAL As Ordered ONE
== END ==
LOC: M WHC 08:58
PROVIDERS: ATTEND Family Medicine
DX: Z13.820 Encounter for screening for osteoporosis (principal); M85.80 Other specified disorders of bone density and structure, unspecified site

== ENCOUNTER → 2022-01-09 | Outpatient (CLI) | payer OTHER ==
[2022-01-09 13:48] LABS: HEMOGLOBIN A1c 5.5 %
[2022-01-09 13:51] LABS: ALBUMIN 3.9 GM/DL (3.2-5.2); ALT/SGPT 31 U/L (12-78); BILIRUBIN,TOTAL 0.7 MG/DL (0.2-1.0); BLOOD UREA NITROGEN 14 MG/DL (7-18); C REACTIVE PROTEIN QUANTITATIV 0.46 MG/DL (0.00-0.30); CALCIUM LEVEL 9.1 MG/DL (8.5-10.1); CARBON DIOXIDE LEVEL 28 MEQ/L (21-32); CHLORIDE LEVEL 107 MEQ/L (98-107); CHOLESTEROL LEVEL 181 MG/DL (<200); CHOLESTEROL RISK RATIO 2.513 (<5); CREATININE FOR GFR 0.74 MG/DL (0.55-1.30); GLOMERULAR FILTRATION RATE > 60.0 (>51); GLUCOSE, FASTING 88 MG/DL (70-100); HDL CHOLESTEROL 72 MG/DL (>40); LDL CHOLESTEROL 92 MG/DL (<100); NON-HDL-C 109 MG/DL; POTASSIUM SERUM 4.1 MEQ/L (3.5-5.1); SODIUM LEVEL 140 MEQ/L (136-145); TOTAL PROTEIN 7.1 GM/DL (6.4-8.2); TRIGLYCERIDES LEVEL 87 MG/DL (<150)
[2022-01-09 13:54] LABS: TOTAL 25(OH) VITAMIN D 34.7 NG/ML (30.0-100.0)
[2022-01-09 13:55] LABS: PTH INTACT 62.7 PG/ML (18.5-88.0)
== END ==
LOC: M PLALAB 08:52
PROVIDERS: ATTEND Family Medicine
DX: E55.9 Vitamin D deficiency, unspecified (principal); R73.01 Impaired fasting glucose

== ENCOUNTER 2022-01-22 10:39 | Emergency (ER) | payer OTHER ==
[~2022-01-22] VITALS: Ht 157.5 cm; Wt 90.9 kg
[2022-01-22 10:39] VITALS: BP 163/92
== END 2022-01-22 13:44 | disposition left against medical advice (07) ==
LOC: M ED 10:39
DX: Z53.29 Procedure and treatment not carried out because of patient's decision for other reasons (principal)

== ENCOUNTER → 2022-06-25 | Outpatient (REF) | payer OTHER | LOC: M SFHCPLAZ 14:31 | PROVIDERS: ATTEND Family Medicine | DX: R73.01 Impaired fasting glucose (principal); M85.80 Other specified disorders of bone density and structure, unspecified site; K21.9 Gastro-esophageal reflux disease without esophagitis; G62.9 Polyneuropathy, unspecified; G31.84 Mild cognitive impairment of uncertain or unknown etiology; Z53.8 Procedure and treatment not carried out for other reasons ==

== ENCOUNTER → 2022-06-25 | Outpatient (CLI) | payer OTHER ==
[2022-06-25 17:17] LABS: HEMATOCRIT 40.6 % (36.0-47.0)
[2022-06-25 17:57] LABS: CREATININE, URINE 90.1 MG/DL; MALB URINE SIEMENS 7.8 MG/L; MAU/CREAT RATIO 8.6 MCG/MG (0.0-30.0)
[2022-06-25 19:19] LABS: HEMOGLOBIN A1c 5.4 %
[2022-06-29 16:10] LABS: APOLIPOPROTEIN A-1 170 mg/dL (116-209); APOLIPOPROTEIN B 79 mg/dL (<90); APOLIPOPROTEIN B/A-1 RATIO 0.5 ratio (0.0-0.6); H PYLORI SERUM QUANT IgG ABY 0.13 (0.00-0.79); INSULIN LEVEL 25.9 uIU/mL (2.6-24.9); TISSUE TRANSGLUTAMINASE IgA <2 U/mL (0-3)
== END ==
LOC: M ADAMS 14:39
PROVIDERS: ATTEND Family Medicine
DX: R73.01 Impaired fasting glucose (principal); M85.80 Other specified disorders of bone density and structure, unspecified site; K21.9 Gastro-esophageal reflux disease without esophagitis; G62.9 Polyneuropathy, unspecified; G31.84 Mild cognitive impairment of uncertain or unknown etiology

== ENCOUNTER → 2022-11-30 | Outpatient (CLI) | payer OTHER ==
[2022-11-30 15:10] LABS: FREE T4 1.01 NG/DL (0.89-1.76); THYROID STIMULATING HORMONE 3.287 uIU/ML (0.55-4.78)
[2022-11-30 15:11] LABS: ALBUMIN 3.9 G/DL (3.2-5.2); ALKALINE PHOSPHATASE 118 U/L (46-116); ALT/SGPT 24 U/L (7.0-40); AST/SGOT 19 U/L (<34); BILIRUBIN,TOTAL 0.6 MG/DL (0.3-1.2); BLOOD UREA NITROGEN 13 MG/DL (9-23); CALCIUM LEVEL 9.3 MG/DL (8.5-10.1); CARBON DIOXIDE LEVEL 28 MMOL/L (20-31); CHLORIDE LEVEL 107 MMOL/L (98-107); CREATININE FOR GFR 0.65 MG/DL (0.55-1.30); FERRITIN 30.8 NG/ML (7.3-270.7); GLOMERULAR FILTRATION RATE > 60.0 (>51); GLUCOSE, FASTING 95 MG/DL (60-100); POTASSIUM SERUM 4.6 MMOL/L (3.5-5.1); SODIUM LEVEL 139 MMOL/L (136-145); TOTAL PROTEIN 6.9 G/DL (5.7-8.2)
[2022-11-30 15:12] LABS: PTH INTACT 76.4 PG/ML (18.5-88.0)
[2022-11-30 15:13] LABS: TOTAL 25(OH) VITAMIN D 30.1 NG/ML (20.0-100.0); VITAMIN B12 LEVEL 232 PG/ML (211-911)
[2022-11-30 15:24] LABS: BASO # 0.1 10^3/uL (0.0-0.2); BASO % 0.8 % (0.0-1.0); EOS # 0.1 10^3/uL (0.0-0.5); EOS % 2.3 % (0.0-3.0); HEMOGLOBIN 13.7 g/dl (12.0-15.5); LYMPH # 2.3 10^3/uL (1.5-5.0); MEAN CORPUSCULAR HEMOGLOBIN 29.1 pg (27.0-33.0); MEAN CORPUSCULAR HGB CONC 31.1 g/dl (32.0-36.5); MEAN CORPUSCULAR VOLUME 93.4 fl (80.0-96.0); MONO # 0.4 10^3/uL (0.0-0.8); MONO % 5.8 % (2.0-8.0); NEUTROPHILS # 3.2 10^3/uL (1.5-8.5); NEUTROPHILS % 52.6 % (36.0-66.0); PLATELET COUNT, AUTOMATED 300 10^3/uL (150-450); RED BLOOD COUNT 4.71 10^6/uL (4.00-5.40); WHITE BLOOD COUNT 6.2 10^3/uL (4.0-10.0)
[2022-11-30 15:35] LABS: HEMOGLOBIN A1c 5.4 % (4.0-6.0)
== END ==
LOC: M PLALAB 09:55
PROVIDERS: ATTEND Family Medicine
DX: E53.8 Deficiency of other specified B group vitamins (principal); E55.9 Vitamin D deficiency, unspecified; R73.01 Impaired fasting glucose

== ENCOUNTER → 2022-12-09 | Outpatient (CLI) | payer OTHER ==
[~2022-12-09] MED LIST changes: +FLUT50SP17; -FLUTISP
== END ==
LOC: M SLEEP HO 11:41
PROVIDERS: ATTEND Family Medicine
DX: G47.33 Obstructive sleep apnea (adult) (pediatric) (principal)

== ENCOUNTER → 2023-06-23 | Outpatient (REF) | payer OTHER ==
[~2023-06-23] MED LIST changes: -LIDO1CRE42 TOP; +LIDO30CR18 TOP
[2023-06-23 17:28] LABS: BASO # 0.1 10^3/uL (0.0-0.2); EOS # 0.2 10^3/uL (0.0-0.5); EOS % 2.2 % (0.0-3.0); HEMATOCRIT 41.8 % (36.0-47.0); HEMOGLOBIN 13.5 g/dl (12.0-15.5); LYMPH # 2.6 10^3/uL (1.5-5.0); LYMPH % 35.3 % (24.0-44.0); MEAN CORPUSCULAR HEMOGLOBIN 29.3 pg (27.0-33.0); MEAN CORPUSCULAR HGB CONC 32.3 g/dl (32.0-36.5); MEAN CORPUSCULAR VOLUME 90.7 fl (80.0-96.0); MONO # 0.5 10^3/uL (0.0-0.8); MONO % 6.5 % (2.0-8.0); NEUTROPHILS % 54.7 % (36.0-66.0); PLATELET COUNT, AUTOMATED 291 10^3/uL (150-450); RED BLOOD COUNT 4.61 10^6/uL (4.00-5.40); WHITE BLOOD COUNT 7.3 10^3/uL (4.0-10.0)
[2023-06-23 17:57] LABS: FERRITIN 38.6 NG/ML (7.3-270.7); THYROID STIMULATING HORMONE 1.934 uIU/ML (0.55-4.78)
[2023-06-23 17:58] LABS: FREE T4 0.91 NG/DL (0.89-1.76)
[2023-06-23 18:01] LABS: ALBUMIN 3.9 G/DL (3.2-5.2); ALKALINE PHOSPHATASE 119 U/L (46-116); ALT/SGPT 25 U/L (7.0-40); AST/SGOT 18 U/L (<34); BILIRUBIN,TOTAL 0.5 MG/DL (0.3-1.2); BLOOD UREA NITROGEN 9 MG/DL (9-23); CARBON DIOXIDE LEVEL 28 MMOL/L (20-31); CHLORIDE LEVEL 107 MMOL/L (98-107); CREATININE FOR GFR 0.71 MG/DL (0.55-1.30); GLOMERULAR FILTRATION RATE > 60.0 (>51); GLUCOSE, FASTING 71 MG/DL (60-100); POTASSIUM SERUM 4.2 MMOL/L (3.5-5.1); SODIUM LEVEL 143 MMOL/L (136-145); TOTAL PROTEIN 7.1 G/DL (5.7-8.2)
[2023-06-23 18:03] LABS: VITAMIN B12 LEVEL 354 PG/ML (211-911)
[2023-06-23 18:05] LABS: THYROGLOBULIN ANTIBODY < 15.0 U/ML (<60.0); THYROID PEROXIDASE ANTIBODY < 28.0 U/ML (<60.0)
== END ==
LOC: M SFHCADAM 15:46
PROVIDERS: ATTEND Family Medicine
DX: E53.8 Deficiency of other specified B group vitamins (principal); R73.01 Impaired fasting glucose

== ENCOUNTER → 2024-07-26 | Outpatient (CLI) | payer OTHER ==
[~2024-07-26] MED LIST changes: -FLUT50SP17; +FLUTISP; +GABA-1172 PO; -GABA-282 PO
[2024-07-26 11:28] LABS: BASO # 0.1 10^3/uL (0.0-0.2); BASO % 0.9 % (0.0-1.0); EOS # 0.1 10^3/uL (0.0-0.5); HEMATOCRIT 42.2 % (36.0-47.0); HEMOGLOBIN 13.8 g/dl (12.0-15.5); LYMPH # 2.1 10^3/uL (1.5-5.0); MEAN CORPUSCULAR HEMOGLOBIN 29.9 pg (27.0-33.0); MEAN CORPUSCULAR HGB CONC 32.7 g/dl (32.0-36.5); MEAN CORPUSCULAR VOLUME 91.5 fl (80.0-96.0); MONO # 0.5 10^3/uL (0.0-0.8); MONO % 6.7 % (2.0-8.0); PLATELET COUNT, AUTOMATED 315 10^3/uL (150-450); RED BLOOD COUNT 4.61 10^6/uL (4.00-5.40); WHITE BLOOD COUNT 6.8 10^3/uL (4.0-10.0)
[2024-07-26 11:45] LABS: HEMOGLOBIN A1c 5.4 % (4.0-6.0)
[2024-07-26 12:06] LABS: ALBUMIN 3.9 G/DL (3.2-5.2); ALKALINE PHOSPHATASE 124 U/L (35-104); ALT/SGPT 33 U/L (7.0-40); AST/SGOT 21 U/L (<34); BILIRUBIN,TOTAL 0.6 MG/DL (0.3-1.2); BLOOD UREA NITROGEN 14 MG/DL (9-23); CALCIUM LEVEL 9.7 MG/DL (8.5-10.1); CARBON DIOXIDE LEVEL 26 MMOL/L (20-31); CHLORIDE LEVEL 107 MMOL/L (98-107); CHOLESTEROL LEVEL 201 MG/DL (<200); CHOLESTEROL RISK RATIO 2.93 (<5); CREATININE FOR GFR 0.74 MG/DL (0.55-1.30); FERRITIN 49.5 NG/ML (7.3-270.7); GLOMERULAR FILTRATION RATE > 60.0 (>51); GLUCOSE, FASTING 91 MG/DL (60-100); HDL CHOLESTEROL 68.4 MG/DL (>40); LDL CHOLESTEROL 115.4 MG/DL (<100); NON-HDL-C 132.6 MG/DL; POTASSIUM SERUM 4.8 MMOL/L (3.5-5.1); PTH INTACT 86.2 PG/ML (18.5-88.0); SODIUM LEVEL 141 MMOL/L (136-145); TOTAL 25(OH) VITAMIN D 36.7 NG/ML (20.0-100.0); TOTAL PROTEIN 7.7 G/DL (5.7-8.2); TRIGLYCERIDES LEVEL 86 MG/DL (<150); VITAMIN B12 LEVEL 650 PG/ML (211-911)
== END ==
LOC: M PLALAB 07:59
PROVIDERS: ATTEND Family Medicine
DX: R73.01 Impaired fasting glucose (principal); E55.9 Vitamin D deficiency, unspecified; E53.8 Deficiency of other specified B group vitamins; G47.33 Obstructive sleep apnea (adult) (pediatric); D50.9 Iron deficiency anemia, unspecified

== ENCOUNTER → 2024-07-26 | Outpatient (CLI) | payer OTHER | LOC: M WHC 07:57 | PROVIDERS: ATTEND Family Medicine | DX: M81.0 Age-related osteoporosis without current pathological fracture (principal) ==

== ENCOUNTER → 2024-12-21 | Outpatient (CLI) | payer OTHER | LOC: M LAB 06:42 | PROVIDERS: ATTEND Family Medicine | DX: R73.01 Impaired fasting glucose (principal) ==

== ENCOUNTER → 2025-05-16 | Outpatient (CLI) | payer OTHER ==
[~2025-05-16] MED LIST changes: -AMBI5TAB PO; +ZOLP-532 PO
== END ==
LOC: M PLAIMG 10:13
DX: M25.551 Pain in right hip (principal)

== ENCOUNTER → 2025-05-16 | Outpatient (CLI) | payer OTHER ==
[2025-05-16 14:37] LABS: BASO # 0.1 10^3/uL (0.0-0.2); BASO % 1.1 % (0.0-1.0); EOS # 0.1 10^3/uL (0.0-0.5); EOS % 2.2 % (0.0-3.0); LYMPH # 2.5 10^3/uL (1.5-5.0); LYMPH % 39.4 % (24.0-44.0); MONO # 0.4 10^3/uL (0.0-0.8); MONO % 5.7 % (2.0-8.0); NEUTROPHILS # 3.2 10^3/uL (1.5-8.5); NEUTROPHILS % 51.3 % (36.0-66.0); PLATELET COUNT, AUTOMATED 308 10^3/uL (150-450)
[2025-05-16 14:38] LABS: TOTAL 25(OH) VITAMIN D 34.6 NG/ML (20.0-100.0)
[2025-05-16 14:39] LABS: VITAMIN B12 LEVEL 481 PG/ML (211-911)
[2025-05-16 14:42] LABS: ALT/SGPT 27 U/L (7.0-40); AST/SGOT 24 U/L (<34); CALCIUM LEVEL 9.3 MG/DL (8.5-10.1); CARBON DIOXIDE LEVEL 25 MMOL/L (20-31); CHLORIDE LEVEL 106 MMOL/L (98-107); CHOLESTEROL LEVEL 190 MG/DL (<200); CHOLESTEROL RISK RATIO 2.83 (<5); CREATININE FOR GFR 0.66 MG/DL (0.55-1.30); GLOMERULAR FILTRATION RATE > 90.0 (>51); LDL CHOLESTEROL 101.7 MG/DL (<100); NON-HDL-C 122.9 MG/DL; POTASSIUM SERUM 4.7 MMOL/L (3.5-5.1); PTH INTACT 77.2 PG/ML (18.5-88.0); SODIUM LEVEL 142 MMOL/L (136-145); TRIGLYCERIDES LEVEL 106 MG/DL (<150)
[2025-05-16 14:43] LABS: ESTIMATED AVERAGE GLUCOSE 114.0 MG/DL (60-110)
[2025-05-16 16:04] LABS: CREATININE, URINE 49.9 MG/DL
[2025-05-16 16:06] LABS: MALB URINE SIEMENS < 3.0 MG/L
== END ==
LOC: M PLALAB 10:14
PROVIDERS: ATTEND Family Medicine
DX: E55.9 Vitamin D deficiency, unspecified (principal); E53.8 Deficiency of other specified B group vitamins; R73.01 Impaired fasting glucose; D50.9 Iron deficiency anemia, unspecified; G47.33 Obstructive sleep apnea (adult) (pediatric)

== ENCOUNTER → 2025-05-24 | Outpatient (REF) | payer OTHER | LOC: M SFHCPLAZ 13:51 | PROVIDERS: ATTEND Family Medicine | DX: Z53.8 Procedure and treatment not carried out for other reasons (principal) ==